=== PATIENT | male | born 1955 | race Caucasian/White ===

== ENCOUNTER 2022-11-07 09:53 | Emergency (ER) | payer OTHER ==
[~2022-11-07] VITALS: Ht 170.2 cm; Wt 65.8 kg
[2022-11-07 10:31] LABS: INFLUENZA TYPE A Negative For Type A (NEGATIVE); INFLUENZA TYPE B Negative For Type B (NEGATIVE)
[2022-11-07 10:50] LABS: SARS-CoV-2, RNA, NAAT POSITIVE SARS CoV-2 (NEGATIVE)
[2022-11-07 12:13] VITALS: BP 97/45; PULSE 80; RESP 18; O2SAT 99
[2022-11-07] MEDS ORDERED: NIRM1TAB5 PO (12:42)
== END 2022-11-07 13:09 | disposition home or self-care (01) ==
LOC: EDBD 09:53 → EDH 09:53
DX: U07.1 COVID-19 (principal); B97.89 Other viral agents as the cause of diseases classified elsewhere; J01.90 Acute sinusitis, unspecified; I48.91 Unspecified atrial fibrillation; Z95.810 Presence of automatic (implantable) cardiac defibrillator
CPT/HCPCS: 99284; 71045; 87635; 87804 ×2; C9803